=== PATIENT | female | born 1965 | race Caucasian/White ===

== ENCOUNTER 2017-11-07 16:29 | Emergency (ER) | payer OTHER ==
[~2017-11-07] VITALS: Ht 170.2 cm; Wt 78.5 kg
[~2017-11-07 16:29] MED LIST: DICLOFENAC SODI50 MG PO; KETO10TA2 PO; MEDROLPACK PO; NEURONTIN300 MG PO; NORFLEX100MG PO; ORPH100T PO
== END 2017-11-07 19:29 | disposition home or self-care (01) ==
LOC: ER 16:29
DX: S40.011A Contusion of right shoulder, initial encounter (principal); S60.211A Contusion of right wrist, initial encounter; W18.09XA Striking against other object with subsequent fall, initial encounter; Y93.89 Activity, other specified; Y92.63 Factory as the place of occurrence of the external cause; Y99.8 Other external cause status

== ENCOUNTER 2019-08-08 01:07 | Emergency (ER) | payer OTHER ==
[~2019-08-08] VITALS: Ht 170.2 cm; Wt 81.6 kg
[2019-08-08] MEDS ORDERED: DICLOFENAC SODI75 MG PO (02:11)
[2019-08-08] MEDS ORDERED: NORFLEX100MG PO (02:11)
== END 2019-08-08 02:19 | disposition home or self-care (01) ==
LOC: ER 01:07
DX: S10.83XA Contusion of other specified part of neck, initial encounter (principal); S60.221A Contusion of right hand, initial encounter; M54.2 Cervicalgia; M79.641 Pain in right hand; V49.88XA Car occupant (driver) (passenger) injured in other specified transport accidents, initial encounter; Y93.89 Activity, other specified; Y92.488 Other paved roadways as the place of occurrence of the external cause; Y99.8 Other external cause status

== ENCOUNTER 2020-09-08 15:27 | Emergency (ER) | payer OTHER ==
[~2020-09-08] VITALS: Ht 170.2 cm; Wt 86.2 kg
[~2020-09-08 15:27] MED LIST changes: +DICLOFENAC SODI75 MG PO
== END 2020-09-08 19:26 | disposition home or self-care (01) ==
LOC: ER 15:27
DX: S39.012A Strain of muscle, fascia and tendon of lower back, initial encounter (principal); M62.838 Other muscle spasm; X50.0XXA Overexertion from strenuous movement or load, initial encounter; Y93.89 Activity, other specified; Y92.39 Other specified sports and athletic area as the place of occurrence of the external cause; Y99.8 Other external cause status

== ENCOUNTER 2021-03-18 15:14 | Emergency (ER) | payer OTHER ==
[~2021-03-18] VITALS: Ht 170.2 cm; Wt 82.6 kg
== END 2021-03-18 19:55 | disposition home or self-care (01) ==
LOC: ER 15:14
DX: M54.42 Lumbago with sciatica, left side (principal)